=== PATIENT | male | born 1945 | race Caucasian/White ===

== ENCOUNTER 2020-03-31 10:24 | Inpatient (IN) | payer MEDICARE ==
[2020-03-31] MEDS ORDERED: Morphine 4 MG/ML VIAL ONE (10:36)
[2020-03-31] MEDS ORDERED: Morphine 4 MG/ML VIAL SLOW IVP PRN (12:11)
[2020-03-31] MEDS ORDERED: hydrALAZINE 20 MG/ML VIAL SLOW IVP PRN (12:26)
[2020-03-31] MEDS ORDERED: Dextrose 50% Abboject 50 ML SYRINGE SLOW IVP PRN (12:26)
[2020-03-31] MEDS ORDERED: Ondansetron PF 4 MG/2 ML Vial IVP PRN (12:26)
[2020-03-31] MEDS ORDERED: Dextrose 5% in Water 1,000 ML IV PRN (12:26)
[2020-03-31] MEDS ORDERED: traMADol HCl 50 MG TAB PO PRN (12:28)
[2020-03-31 12:43] VITALS: BMI 31.3
--- NOTE | 2020-03-31 12:46 | RAD ---
Exam: Chest one view HISTORY:Preoperative exam Comparison: 03/14/2015 FINDINGS: Cardiac silhouette: Normal Aorta: Unremarkable Pulmonary vessels: Normal Costophrenic angles: Clear LUNGS: Diminished lung volumes, likely due to a poor inspiratory effort. No masses or consolidation. Pneumothorax: None Osseous abnormalities: None IMPRESSION: No acute cardiopulmonary process.
[2020-03-31 12:47] LABS: #Lymphocytes 0.9 thou/uL (1.20-3.40); #Monocytes 1.1 thou/uL (0.11-0.59); #Neutrophils 17.6 thou/uL (1.40-6.50); %Basophils 0.2 % (0.0-1.0); %Eosinophils 0.1 % (0.0-10.0); %Lymphocytes 4.6 % (21.0-51.0); %Monocytes 5.4 % (0.0-10.0); %Neutrophils 89.7 % (42.0-75.0); Hemoglobin 14.4 g/dL (14.0-18.0); Mean Corpuscular HGB CONC 34.1 g/dL (32.0-36.0); Mean Corpuscular Hemoglobin 31.8 pg (27.0-31.0); Mean Corpuscular Volume 93.2 fL (78.0-98.0); Mean Platelet Volume 6.9 fL (7.4-10.4); Platelet Count 299 thou/uL (130-400); RBC Distribution Width 11.3 % (11.5-14.5); Red Blood Cell (RBC) Count 4.53 mill/uL (4.70-6.10); White Blood Cell (WBC) Count 19.7 thou/uL (4.8-10.8)
[2020-03-31 12:54] LABS: PTT 25.5 sec (22.9-36.1); Prothrombin Time 13.7 sec (12.0-14.7)
[2020-03-31 13:14] LABS: ALT (SGPT) 14 U/L (8-55); AST (SGOT) 18 U/L (5-34); Alkaline Phosphatase 60 U/L (40-110); Anion Gap 11 mmol/L (10-20); BUN (Urea Nitrogen) 16 mg/dL (8.4-25.7); Bilirubin, Total 0.5 mg/dL (0.2-1.2); Calc. Creatinine Clearance 89 mL/min (70-130); Calcium 9.3 mg/dL (7.8-10.44); Carbon Dioxide 29 mmol/L (23-31); Chloride 103 mmol/L (98-107); Globulin 3.1 g/dL (2.4-3.5); Glucose 125 mg/dL (83-110); Magnesium 1.9 mg/dL (1.6-2.6); Phosphorus 2.8 mg/dL (2.3-4.7); Potassium 4.2 mmol/L (3.5-5.1); Protein, Total 7.1 g/dL (5.8-8.1); Sodium 139 mmol/L (136-145)
[2020-03-31] MEDS: Ibuprofen 200 MG TAB PO SCH ×2 (13:43→21:12)
[2020-03-31] MEDS: traMADol HCl 50 MG TAB PO PRN ×2 (13:44→21:12)
[2020-03-31] MEDS ORDERED: Sodium Phosphate 15 MMOL in Sodium Chloride 0.9% 250 ML 250 ML IVPB SCH (14:00)
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
[2020-03-31] MEDS: Acetaminophen 500 MG TAB PO SCH (18:07)
[2020-03-31] MEDS: Cyclobenzaprine 10 MG TAB PO PRN (21:13)
[2020-03-31] MEDS: Famotidine/PF 20 mg/2ml Vial SLOW IVP SCH (21:14)
[2020-03-31] MEDS: Senokot S 8.6-50 MG TAB PO SCH (21:14)
--- NOTE | 2020-03-31 22:15 | PDOC.BPN ---
- Brief Progress Note Encounter Date: 03/31/20 Encounter Time: 21:00 Patient was seen during evening rounds on the surgical floor resting comfortably in no distress. No issues reported by the patients nurse. Vital signs are stable and patient is afebrile. Plan of care is unchanged, NPO at midnight with maintenance IV fluids.
[2020-04-01] MEDS ORDERED: Sodium Chloride 0.9% 1,000 ML IV SCH (00:01)
[2020-04-01] MEDS: Acetaminophen 500 MG TAB PO SCH ×5 (00:07→23:21)
[2020-04-01] MEDS: traMADol HCl 50 MG TAB PO PRN (03:29)
[2020-04-01 05:33] LABS: #Basophils 0.1 thou/uL (0.0-0.2); #Eosinphils 0.2 thou/uL (0.0-0.7); #Lymphocytes 1.8 thou/uL (1.20-3.40); #Monocytes 0.8 thou/uL (0.11-0.59); #Neutrophils 8.1 thou/uL (1.40-6.50); %Basophils 0.5 % (0.0-1.0); %Eosinophils 1.4 % (0.0-10.0); %Lymphocytes 16.7 % (21.0-51.0); %Monocytes 7.6 % (0.0-10.0); %Neutrophils 73.8 % (42.0-75.0); Hemoglobin 14.2 g/dL (14.0-18.0); Mean Corpuscular HGB CONC 34.1 g/dL (32.0-36.0); Mean Corpuscular Volume 93.9 fL (78.0-98.0); Mean Platelet Volume 6.9 fL (7.4-10.4); Platelet Count 248 thou/uL (130-400); RBC Distribution Width 11.2 % (11.5-14.5); Red Blood Cell (RBC) Count 4.43 mill/uL (4.70-6.10)
[2020-04-01 05:59] LABS: Anion Gap 10 mmol/L (10-20); BUN (Urea Nitrogen) 13 mg/dL (8.4-25.7); Calc. Creatinine Clearance 106 mL/min (70-130); Calcium 8.6 mg/dL (7.8-10.44); Carbon Dioxide 28 mmol/L (23-31); Chloride 104 mmol/L (98-107); Glucose 77 mg/dL (83-110); Phosphorus 3.3 mg/dL (2.3-4.7); Potassium 3.9 mmol/L (3.5-5.1); Sodium 138 mmol/L (136-145)
[2020-04-01] MEDS: Ibuprofen 200 MG TAB PO SCH ×3 (06:08→19:43)
--- NOTE | 2020-04-01 07:12 | EKG ---
Test Reason : Blood Pressure : / mmHG Vent. Rate : 083 BPM Atrial Rate : 083 BPM P-R Int : 172 ms QRS Dur : 090 ms QT Int : 344 ms P-R-T Axes : 054 -17 024 degrees QTc Int : 404 ms Normal sinus rhythm Normal ECG No previous ECGs available Confirmed by DR. Sonia BOOKER ([id number]) on 04/01/2020 7:12:17 AM Referred By: GABRIELLA DUMONT Confirmed By:DR. Sonia BOOKER
[2020-04-01] MEDS ORDERED: PHOS-NAK 1 PKT PACK PO SCH (08:00)
[2020-04-01] MEDS: Famotidine/PF 20 mg/2ml Vial SLOW IVP SCH (08:32)
[2020-04-01] MEDS: Senokot S 8.6-50 MG TAB PO SCH ×2 (08:46→19:43)
[2020-04-01] MEDS: Polyethylene Glycol 3350 17 GM Packet PO SCH (08:46)
[2020-04-01] MEDS ORDERED: PHENYLEPHRINE-NS 100 MCG/ML 10 ML SYRINGE ONE ×2 (09:07→14:38)
[2020-04-01] MEDS ORDERED: Dexamethasone 20 MG/5 ML VIAL ONE (09:07)
[2020-04-01] MEDS ORDERED: Ondansetron PF 4 MG/2 ML Vial ONE (09:07)
[2020-04-01] MEDS ORDERED: Rocuronium Bromide 10 MG/ML (10ML VIAL) ONE (09:07)
[2020-04-01] MEDS ORDERED: Glycopyrrolate 0.2 MG/ML 5 ML SYRINGE ONE (09:07)
[2020-04-01] MEDS ORDERED: ePHEDrine 50 MG/ML VIAL ONE (09:07)
[2020-04-01] MEDS ORDERED: Lidocaine 1% PF 5 ML VIAL ONE (09:07)
[2020-04-01] MEDS ORDERED: PROPOFOL 200 MG/20 ML VIAL ONE (09:07)
--- NOTE | 2020-04-01 12:12 | PRG ---
DATE OF SERVICE: 04/01/2020 SUBJECTIVE: The patient is a 75-year-old male with a past medical history of hypertension who is being treated for right displaced femoral neck fracture. On exam today, the patient was feeling well with 5/10 pain. Pain is better as long as he does not move. The patient reported they are planning to go back for orthopedic surgery at 12:30 today. The patient's was in the room, whom we discussed the plan with. OBJECTIVE: VITAL SIGNS: The patient has been afebrile with stable vital signs. Most recent vital signs show blood pressure 128/70, temperature 98.0, pulse of 70, respiratory rate of 16, O2 saturation 94% on room air. GENERAL: A 75-year-old male who appears stated age, in no acute distress, sitting up comfortably in bed. HEENT: Normocephalic, atraumatic. RESPIRATORY: Equal rise and fall. No acute respiratory distress. MUSCULOSKELETAL: Range of motion in right lower extremity is limited by pain. No acute deformities of upper extremities. NEUROLOGIC: Alert and oriented x3. No focal deficits. PSYCHIATRIC: Mood and affect congruent and appropriate. DIAGNOSTIC STUDIES: The patient had imaging studies done on 03/31 showing right hip displaced femoral neck fracture, no right wrist posttraumatic changes, and no acute intrathoracic changes on chest x-ray. LABORATORY DATA: This morning is significant for white blood cell count of 11. Otherwise, CBC and BMP are unremarkable. ASSESSMENT: 1. Status post mechanical fall from standing. 2. Right femoral neck fracture. 3. History of hypertension. PLAN: Plan for the patient to go to Dr. Montalvo for surgery today. Postop care will likely include rehab placement. We will achieve pain control right now with ibuprofen and tramadol with p.r.n. morphine. We will evaluate after surgery. Job ID: [id number]
[2020-04-01] MEDS ORDERED: Vancomycin 1.5 GRAM/300 ML BAG ONE (12:23)
[2020-04-01] MEDS ORDERED: Fentanyl 100 MCG/2 ML VIAL ONE ×4 (12:38→16:19)
[2020-04-01] MEDS ORDERED: HYDROmorphone 2 MG/ML VIAL SLOW IVP PRN (15:02)
[2020-04-01] MEDS ORDERED: Promethazine HCl 25 MG/ML VIAL SLOW IVP PRN (15:02)
[2020-04-01] MEDS ORDERED: Meperidine HCl/PF 25 MG/ML VIAL SLOW IVP PRN (15:02)
[2020-04-01] MEDS ORDERED: Promethazine HCl 25 MG/ML VIAL IM PRN (15:02)
[2020-04-01] MEDS ORDERED: HYDROmorphone 0.5 MG/0.5 ML SYRINGE ONE (15:20)
--- NOTE | 2020-04-01 15:29 | RAD ---
Exam:2 views right hip HISTORY: Post arthroplasty COMPARISON: 03/31/2020 FINDINGS: Findings compatible with a right hip arthroplasty. There are expected postoperative changes . IMPRESSION: Findings compatible with right hip arthroplasty
--- NOTE | 2020-04-01 15:35 | RAD ---
EXAM: AP PELVIS ONE VIEW: 04/01/20 HISTORY: Postoperative right hip replacement. COMPARISON: 03/31/20. FINDINGS: Total right hip replacement changes are noted without dislocation or periprosthetic fracture. Surgica l clips in the pelvis. IMPRESSION: Unremarkable recent total right hip replacement. POS: OFF
--- NOTE | 2020-04-01 18:07 | OP ---
DATE OF PROCEDURE: 04/01/2020 PREOPERATIVE DIAGNOSIS: Right femoral neck fracture, displaced. POSTOPERATIVE DIAGNOSIS: Right femoral neck fracture, displaced. SURGICAL PROCEDURE: Right hip total hip arthroplasty. ANESTHESIA: General. GIFT CONSULTANT: Sonia Anguiano. IMPLANTS: DePuy system was used with a size 6 Lander femoral stem, a size 58 pinnacle acetabular shell, a +4 10-degree acetabular liner, and a +8.5 mm femoral head. COMPLICATIONS: None. DRAINS: None. SPECIMENS: None. OUTCOME: Satisfactory. ESTIMATED BLOOD LOSS: 200 mL. INDICATIONS FOR PROCEDURE: The patient is a 75-year-old gentleman status post ground level fall sustaining a right displaced femoral neck fracture. After discussion with the patient, it became apparent that he is a very active gentleman who maintains his yard and house and pursues significant physical activities. As such, after discussion with the patient including risks and benefits, we have decided to proceed with total hip arthroplasty. Informed consent has been obtained. I believe all questions have been answered. DESCRIPTION OF PROCEDURE: The patient was brought to the operating room and a time-out was performed followed by induction of general anesthesia. Next, the patient was positioned in a left lateral decubitus position and a sterile prep and drape was performed of the right lower extremity. A curvilinear skin incision was made centered over the greater trochanter. After skin was sharply incised, dissection was carried down through the subcutaneous fat to the underlying fascia vy and tensor fascia. This structure was incised in line with skin incision and then reflected posteriorly and anteriorly with a Charnley retractor. The trochanteric bursa was swept off the short external rotators and then an elevator was passed under the abductors. My medication assistant provided traction of the abductors as well as retraction more distally at the level of the quadratus. The piriformis and superior and inferior gemelli were then reflected off the posterior aspect of the femur, tagged and reflected posteriorly exposing the underlying capsule. A T-capsulotomy was then performed. Next, a corkscrew device was used to remove the femoral head. My medication assistant then positioned the leg in internal rotation to allow for cutting of the femoral neck approximately 1 cm proximal to the lesser trochanter. Once this cut was performed, excess bone was removed with a rongeur. Next, attention was placed to the acetabulum. The leg was brought out of extreme internal rotation and then retractor placed at the anterior rim of the acetabulum while my medication assistant provided retraction of the femur as well as soft tissue anteriorly, second retractor was placed posteriorly. Next, Reaming of the acetabulum was started at size 52 and continued up to size 57. This resulted in appropriate medialization and a good reaming of the subchondral bone. Next, the acetabulum was thoroughly irrigated with Pulsavac and then the 58 pinnacle shell was introduced with appropriate version. Once fully seated, a 10-degree offset liner was then also inserted. The retractor was then removed from the anterior acetabulum and the leg was again brought in the internal rotation by my medication assistant to allow for preparation of the proximal femur. A card boxer was used to initiate the opening for the canal reaming. This was followed by a T-handle awl. A lateralizing reamer was then passed followed by progressive T-handle awls up to a size 6, they gave good distal fit. Broaching was then started at size 3 and continued up to size 6, they gave good final fit. A trial reduction was performed on this size 6 trial broach and the +8.5 head neck combination provided good stability and what felt to be equalization of leg lengths. The trial component was then removed and the canal of the femur irrigated copiously. Next, the Lander stem was introduced and inserted fully taking care to check the calcar for any nonappreciated fractures, which were not present. Once the stem was fully seated, the final +8.5 head was applied to the stem and then the hip again reduced. The hip was found to be quite stable. The wound was again irrigated with Pulsavac and then the capsule reapproximated with #2 Vicryl followed by #2 Vicryl, reapproximation of the piriformis and superior and inferior gemelli through 3 small drill holes at the posterior aspect of the femur. This was then followed by closure of the fascia vy and tensor fascia with #1 Vicryl and then 2-0 Vicryl for Arnaud's fascia, followed by 2-0 Vicryl subcutaneously and then daysi for the skin. Xeroform gauze and tape dressing were then applied to the thigh and the patient was transferred to recovery room in stable condition. There were no complications and he tolerated the procedure well. Job ID: [id number]
[2020-04-01] MEDS: Cyclobenzaprine 10 MG TAB PO PRN (19:43)
[2020-04-01] MEDS: CEFAZOLIN 2 GM in Premix Bag 1 BAG IVPB SCH (19:43)
--- NOTE | 2020-04-01 22:35 | PDOC.BPN ---
- Brief Progress Note Encounter Date: 04/01/20 Encounter Time: 21:00 Patient was seen during evening rounds on the surgical floor resting comfortably in no distress. No issues reported by the patients nurse. Vital signs are stable and patient is afebrile. Plan of care is unchanged
[2020-04-02] MEDS: CEFAZOLIN 2 GM in Premix Bag 1 BAG IVPB SCH ×2 (05:28→12:50)
[2020-04-02] MEDS: Acetaminophen 500 MG TAB PO SCH ×3 (05:28→17:29)
[2020-04-02] MEDS: Ibuprofen 200 MG TAB PO SCH ×2 (05:29→12:50)
[2020-04-02 05:58] LABS: #Lymphocytes 0.7 thou/uL (1.20-3.40); #Monocytes 0.8 thou/uL (0.11-0.59); #Neutrophils 12.3 thou/uL (1.40-6.50); %Basophils 0.2 % (0.0-1.0); %Eosinophils 0.1 % (0.0-10.0); %Lymphocytes 5.2 % (21.0-51.0); %Monocytes 5.8 % (0.0-10.0); %Neutrophils 88.7 % (42.0-75.0); Hemoglobin 11.3 g/dL (14.0-18.0); Mean Corpuscular HGB CONC 34.1 g/dL (32.0-36.0); Mean Corpuscular Hemoglobin 31.9 pg (27.0-31.0); Mean Corpuscular Volume 93.7 fL (78.0-98.0); Mean Platelet Volume 7.2 fL (7.4-10.4); Platelet Count 250 thou/uL (130-400); RBC Distribution Width 11.1 % (11.5-14.5); Red Blood Cell (RBC) Count 3.55 mill/uL (4.70-6.10); White Blood Cell (WBC) Count 13.9 thou/uL (4.8-10.8)
[2020-04-02 06:20] LABS: Anion Gap 14 mmol/L (10-20); BUN (Urea Nitrogen) 16 mg/dL (8.4-25.7); Calc. Creatinine Clearance 116 mL/min (70-130); Calcium 8.2 mg/dL (7.8-10.44); Carbon Dioxide 21 mmol/L (23-31); Chloride 106 mmol/L (98-107); Glucose 121 mg/dL (83-110); Magnesium 1.9 mg/dL (1.6-2.6); Phosphorus 3.2 mg/dL (2.3-4.7); Potassium 4.7 mmol/L (3.5-5.1); Sodium 136 mmol/L (136-145)
[2020-04-02] MEDS ORDERED: Magnesium 2 GM/50 ML 2 GM in Premix Bag 1 BAG IVPB SCH (07:45)
[2020-04-02] MEDS ORDERED: PHOS-NAK 1 PKT PACK PO SCH (07:45)
--- NOTE | 2020-04-02 08:21 | PRG ---
DATE OF SERVICE: 04/02/2020 SUBJECTIVE: Jerry is a 75-year-old male, postop day 1 from a right total hip arthroplasty for fracture treatment. He is doing relatively well. He is comfortable, rested, and feeling better. OBJECTIVE: VITAL SIGNS: Temperature is 97.7, pulse 92, respiratory rate 16 and unlabored, blood pressure is . GENERAL: He is alert and oriented to person, place, time, situation. Responsive, appropriate with examiner. Pleasant, conversive. EXTREMITIES: Incision is clean. No strike through. No erythema. No malrotation or shortening. He is neurovascularly intact with dorsiflexion being 5/5 in the right lower extremity. LABORATORY DATA: Hemoglobin and hematocrit 11.3 and 33.2. IMPRESSION: 1. A 75-year-old male, postoperative day 1, right total hip arthroplasty for fracture. 2. Mild asymptomatic postoperative anemia. PLAN: Continue current care. Initiate physical therapy. Continue to observe for hemorrhage and pain control. Job ID: [id number]
[2020-04-02] MEDS ORDERED: Aspirin 81 mg Enteric Coated Tablet PO SCH (09:00)
[2020-04-02] MEDS: Polyethylene Glycol 3350 17 GM Packet PO SCH (09:38)
[2020-04-02] MEDS: traMADol HCl 50 MG TAB PO PRN (09:38)
[2020-04-02] MEDS: Senokot S 8.6-50 MG TAB PO SCH (09:38)
--- NOTE | 2020-04-02 13:32 | PRG ---
DATE OF SERVICE: 04/02/2020 SUBJECTIVE: The patient is a 75-year-old male with past medical history of hypertension, who is status post right total hip arthroplasty due to displaced femoral neck fracture, postop day #1. On exam today, the patient was comfortably sitting in the chair at bedside and reported no acute pain. The patient reports that the right hip is only mildly stiff. The patient reported that he had just talked to someone about going to rehab facility in [place]. The patient was actively using incentive spirometer with volumes greater than 2000 mL. OBJECTIVE: VITAL SIGNS: Most recent set of vital signs show temperature 97.9, pulse 66, respiratory rate 18, O2 saturation 99% on room air, and blood pressure of 123/68. GENERAL: A 75-year-old male who appears stated age, in no acute distress, sitting up comfortably in the chair. HEENT: Normocephalic, atraumatic. RESPIRATORY: Equal chest rise and fall with no acute respiratory distress. MUSCULOSKELETAL: Range of motion in right lower extremity mildly limited by pain, but improved from yesterday. NEUROLOGIC: Alert and oriented x3. No focal deficits. PSYCHIATRIC: Mood and affect; congruent and appropriate. The patient reportedly excited to leave the hospital. DIAGNOSTIC STUDIES: Labs: White blood cell count 13.9, hemoglobin 11.2, hematocrit 33.2, and platelets 250. BMP; sodium 136, potassium 4.7, chloride 106, carbon dioxide 21, BUN 16, creatinine 0.8, GFR greater than 90, glucose 121, calcium 8.2, phosphorus 3.2, magnesium 1.9. Postop hip and pelvis x-rays, status post operation yesterday performed showing a right hip arthroplasty in appropriate positioning. ASSESSMENT: 1. Status post mechanical fall from standing. 2. Right femoral neck fracture, status post right hip arthroplasty, postop day #1. 3. History of hypertension. 4. Acute blood loss anemia, asymptomatic. PLAN: We will continue physical and occupational therapy with the patient. Plan to get patient to rehab facility as soon as possible, which appears to already be in works. We will continue to monitor the patient's vital signs and hemoglobin given recent decrease. Continue current pain control and continue to monitor. Job ID: [id number]
--- NOTE | 2020-04-02 19:00 | DIS ---
DATE OF ADMISSION: 03/31/2020 DATE OF DISCHARGE: 04/02/2020 ADMISSION DIAGNOSES: Mechanical fall, right femoral neck fracture. DISCHARGE DIAGNOSES: Mechanical fall, right femoral neck fracture. CONSULTING PHYSICIAN: Dr. Montalvo of Orthopedic Surgeries. PROCEDURES: The patient went to the OR on April 01, 2020 and he had a right hip total hip arthroplasty. HOSPITAL COURSE: The patient is a 75-year-old male presented to the emergency department after a mechanical fall at home. He was found to have a right femoral neck fracture. He was admitted to the Trauma Service. The next day went to the OR with Dr. Montalvo for a right total hip arthroplasty. Postoperatively, he worked with Physical and Occupational Therapy and was ultimately discharged to acute rehab facility. At the time of discharge, the patient's pain was well controlled. He was tolerating regular diet, working with Physical and Occupational Therapy, and ambulating without difficulties. DISCHARGE DISPOSITION: Acute rehab facility, [facility]. DISCHARGE CONDITION: Satisfactory. PHYSICAL EXAMINATION: VITAL SIGNS: Temperature 98.6, pulse 71, respirations 18, oxygen saturation 92% on room air, and blood pressure 123/71. GENERAL: Well-appearing elderly male, sitting up in chair with no signs of acute distress. PULMONARY: Equal chest rise and fall. No signs of acute respiratory distress. CARDIAC: Regular rate and rhythm. NEUROLOGIC: GCS is 15. DISCHARGE INSTRUCTIONS: The patient was discharged to [facility]. Activity as tolerated. Weightbearing as tolerated to all extremities with posterior hip precautions, right lower extremity. He will have a regular diet. He will have physical and occupational therapy as well as incentive spirometry and walker. DISCHARGE MEDICATIONS: Include, 1. Tylenol. 2. Aspirin. 3. Flexeril. 4. Ibuprofen. 5. Omeprazole. 6. MiraLAX. 7. Senokot S. 8. Tramadol. 9. Amlodipine. 10. Lisinopril. FOLLOWUP APPOINTMENTS: The patient is to follow up with Dr. Montalvo in clinic. No followup is needed with Dr. Reina in Trauma Clinic. This is a summary of the patient's hospitalization. For full details, please see his medical record in its entirety. This patient was seen and evaluated by myself on the day of discharge. Job ID: [id number]
[2020-04-02 21:24] VITALS: BP 129/69; TEMP 98.5
== END 2020-04-02 20:30 | DRG 522 ==
LOC: ERS 10:24 → SJJU 12:07
PROVIDERS: ADMIT Surgery; ATTEND Surgery
PROC: 0SR90JZ Replacement of Right Hip Joint with Synthetic Substitute, Open Approach (ICD-10-PCS; principal; 2020-04-01)
DX: S72.001A Fracture of unspecified part of neck of right femur, initial encounter for closed fracture (principal); D62 Acute posthemorrhagic anemia; W19.XXXA Unspecified fall, initial encounter; Z20.822 Contact with and (suspected) exposure to COVID-19; I10 Essential (primary) hypertension; Z91.041 Radiographic dye allergy status; Z79.899 Other long term (current) drug therapy; Z79.82 Long term (current) use of aspirin; Z90.49 Acquired absence of other specified parts of digestive tract
CPT/HCPCS: 36415; 71045; 72170; 80048; 80053; 83735; 84100; 85025; 85610; 85730; 90471; 90715; 93005; 93010; 96374; 96375; 96376; C1776; J0690; J1100; J1170; J2270; J2405; J2704; J3010; J3370; J3475; J3490; J7050; S0028; U0002